=== PATIENT | male | born 1970 | race Caucasian/White ===

== ENCOUNTER 2017-06-03 15:38 | Emergency (ER) | payer MEDICAID ==
--- NOTE | 2017-06-03 16:20 | EDM.PDOC ---
ED HPI GENERAL MEDICAL PROBLEM - General Chief Complaint: Upper Extremity Injury/Pain Stated Complaint: RIGHT ARM PAIN Time Seen by Provider: 06/03/17 16:14 Source of Information: Reports: Patient, RN Notes Reviewed History Limitations: Reports: No Limitations - History of Present Illness INITIAL COMMENTS - FREE TEXT/NARRATIVE: 46-year-old gentleman presents to the emergency department today complaint of right arm pain, he states this pain is been ongoing since recent cardiac angiogram done first part of April 2017. He states the pain will come and go on the inside of his arm will radiate up into the neck no other symptomology has developed no redness or erythema still has full function of the arm, the pain will come and go at this time he is pain-free Right Wrist Pain Score (Numeric/FACES): 2 - Related Data Allergies Allergy/AdvReac Type Severity Reaction Status Date / Time No Known Allergies Allergy Verified 06/03/17 15:53 Home Meds: Home Meds Citalopram Hydrobromide [Celexa] 30 mg PO DAILY 02/03/17 [History] atorvaSTATin [Lipitor] 20 mg PO BEDTIME 02/03/17 [History] Past Medical History Cardiovascular History: Reports: Hypertension Psychiatric History: Reports: Anxiety, Other (See Below) Other Psychiatric History: anxiety and anger issues lifelong - Past Surgical History HEENT Surgical History: Reports: Other (See Below) Other HEENT Surgeries/Procedures: FACIAL RECONSTRUCTION, CLEFT PALATE REPAIR, BILAT EAR REPAIR Other Cardiovascular Surgeries/Procedures: NEGATIVE CARDIAC ANGIOGRAM 05/28/2017 Social & Family History - Tobacco Use Smoking Status *Q: Unknown Ever Smoked - Recreational Drug Use Recreational Drug Use: No Review of Systems - Review of Systems Review Of Systems: See Below Musculoskeletal: Reports: Arm Pain Skin: Denies: Bruising, Pruritis, Erythema, Wound ED EXAM, GENERAL - Physical Exam Exam: See Below Free Text/Narrative:: Examination of the arm no tenderness at the shoulder no tenderness at the elbow no tenderness at the wrist full range of motion of all these joints the angiogram scar is clean dry and intact on appreciate any erythema there is no edema in the arm sensation is intact Exam Limited By: No Limitations General Appearance: Alert, WD/WN, No Apparent Distress Respiratory/Chest: No Respiratory Distress, Lungs Clear, Normal Breath Sounds, No Accessory Muscle Use Cardiovascular: Regular Rate, Rhythm, No Murmur Course - Vital Signs Last Recorded V/S: Last Vital Signs Temp 97.2 F 06/03/17 16:52 Pulse 80 06/03/17 16:52 Resp 14 06/03/17 16:52 BP 152/104 H 06/03/17 16:52 Pulse Ox 98 06/03/17 16:52 - Orders/Labs/Meds Labs: Laboratory Tests 06/03/17 06/03/17 06/03/17 Range/Units 16:27 16:27 16:27 WBC 7.2 (4.5-11.0) K/uL RBC 4.90 (4.30-5.90) M/uL Hgb 14.8 (12.0-15.0) g/dL Hct 44.4 (40.0-54.0) % MCV 91 (80-98) fL MCH 30 (27-31) pg MCHC 33 (32-36) % Plt Count 256 (150-400) K/uL Neut % (Auto) 56 (36-66) % Lymph % (Auto) 31 (24-44) % Brule % (Auto) 6 (2-6) % Eos % (Auto) 6 H (2-4) % Baso % (Auto) 1 (0-1) % Sodium 143 (140-148) mmol/L Potassium 3.9 (3.6-5.2) mmol/L Chloride 105 (100-108) mmol/L Carbon Dioxide 28 (21-32) mmol/L Anion Gap 9.8 (5.0-14.0) mmol/L BUN 11 (7-18) mg/dL Creatinine 1.2 (0.8-1.3) mg/dL Est Cr Clr Drug Dosing 83.53 mL/min Estimated GFR (MDRD) > 60 (>60) Glucose 88 (74-106) mg/dL Calcium 8.4 L (8.5-10.1) mg/dL C-Reactive Protein 0.47 H (0.0-0.3) mg/dL TSH, Ultra Sensitive 1.814 (0.358-3.740) uIU/mL Departure - Departure Time of Disposition: 17:15 Disposition: Home, Self-Care 01 Condition: Good Clinical Impression: Right arm pain - Discharge Information Referrals: Arnel Pettit STRAP MACHINE OPERATOR [Primary Care Provider] - Forms: ED Department Discharge Additional Instructions: Use Tylenol or Motrin as needed for pain control, Please followup with your primary care provider in 3-5 days if not better, please call return to the emergency department with worsening of symptoms. - Assessment/Plan Plan: Assessment Acuity = acute Site and laterality = right arm pain Etiology = unclear etiology Manifestations = none Location of injury = Home Lab values = CBC, CMP, CRP, thyroid all within normal limits Plan Recommend symptomatic care Tylenol Motrin as needed follow-up primary care 3-5 days for evaluation This note was dictated using Stamped voice recognition software please call with any questions on syntax or helen.
[2017-06-03 16:53] VITALS: BP 152/104
== END 2017-06-03 17:29 | disposition home or self-care (01) ==
LOC: JP.ED 15:38
DX: M79.601 Pain in right arm (principal); I10 Essential (primary) hypertension; Z79.899 Other long term (current) drug therapy
CPT/HCPCS: 36415; 80048; 84443; 85025; 86140; 99284

== ENCOUNTER 2019-02-08 08:38 | Day surgery (SDC) | payer MEDICAID ==
[~2019-02-08 08:38] MED LIST: Bupivacaine 0.5% 50 ML MDV ONE; Lidocaine 1% with EPINEPHrine 1:100,000 50 ML MDV ONE
[2019-02-08] MEDS ORDERED: Sodium Chloride 0.9% 1,000 ML IV SCH (10:00)
[2019-02-08] MEDS ORDERED: ceFAZolin 2 GM in Sodium Chloride 0.9% 50 ML IV ONE (10:00)
[2019-02-08] MEDS ORDERED: metroNIDAZOLE/Normal Saline 500 MG in Premix Bag 1 BAG IV ONE (10:00)
[2019-02-08] MEDS ORDERED: Ondansetron 4 MG/2 ML SDV ONE (10:10)
[2019-02-08] MEDS ORDERED: Succinylcholine 200 MG/10 ML MDV ONE (10:10)
[2019-02-08] MEDS ORDERED: Rocuronium 50 MG/5 ML Vial ONE (10:10)
[2019-02-08] MEDS ORDERED: Propofol 200 MG/20 ML SDV ONE (10:10)
[2019-02-08] MEDS ORDERED: Glycopyrrolate 0.2 MG/ML 5 ML MDV ONE (10:10)
[2019-02-08] MEDS ORDERED: Neostigmine Methylsulfate 1 MG/ML 5 ML Syringe ONE (10:10)
[2019-02-08] MEDS ORDERED: Dexamethasone 4 MG/ML SDV ONE (10:10)
[2019-02-08] MEDS ORDERED: fentaNYL 250 MCG/5 ML SDV ONE (10:11)
[2019-02-08] MEDS ORDERED: Scopolamine 1.5 MG Transdermal Patch TOP SCH (10:50)
[2019-02-08] MEDS ORDERED: Lactated Ringers 1,000 ML ONE ×2 (11:21→14:04)
[2019-02-08] MEDS ORDERED: Ketorolac 60 MG/2 ML SDV ONE ×2 (12:09→14:29)
[2019-02-08 15:48] VITALS: BP 109/68; PULSE 85
--- NOTE | 2019-02-11 08:21 | OR ---
DATE OF PROCEDURE: 02/08/2019 SURGEON: Avi Lopez MD PROCEDURE: Left total extraperitoneal hernia repair, incarcerated. COMPLICATIONS: None. PEDIATRIC SPEECH LANGUAGE PATHOLOGIST: None. ANESTHESIA: General/local. RISKS: Risks, benefits, alternatives, and limitations including, but not limited to infection, bleeding, and injury to abdominal structures, testicular injury resulting in testicular loss, injury to vas deferens, and other risks not listed here were explained to the patient, who wished to proceed. PROCEDURE IN DETAIL: The patient was placed in supine position. An infraumbilical incision was made and carried down through the linea alba. The rectus muscles were then dissected from the posterior sheath. A Pean was used to create the space. Balloon was used to enter this and it was subsequently insufflated for 2 minutes under direct visualization. The balloon was removed. The potential space was then inspected. No abnormal bleeding was noted. This was then kept enlarged with carbon dioxide. The dissection commenced in the lateral to medial fashion. At no point was the "triangle of " nor the "triangle of doom" entered. The dissection once complete, the patient noted to have an incarcerated indirect inguinal hernia. This had been reduced by reducing the peritoneum. A standard size mesh was then introduced under the 12 mm port system. This was then unfolded directing over the hernia defect itself. No abnormal bleeding was noted. The air was removed while the mesh was held in place. The port sites were then irrigated. The fascia was closed with #1 Vicryl in a running fashion, subcutaneous tissue was closed with 3-0 Vicryl and 4-0 Vicryl in an interrupted running fashion. Dermabond was applied. The patient tolerated the procedure well. Avi Lopez MD /[id number]
--- NOTE | 2019-02-11 08:24 | OR ---
DATE OF PROCEDURE: 02/08/2019 SURGEON: Avi Lopez MD PROCEDURE: Transversus abdominis plane block bilaterally. COMPLICATIONS: None. TELECOM BILLING ANALYST: None. RISKS: Risks, benefits, alternatives, and limitations including, but not limited to infection, bleeding, and injury to abdominal structures were explained the patient, who wished to proceed. PROCEDURE IN DETAIL: The patient was placed in a supine position. The left area was addressed first. 80% of the solution was injected using 13 megahertz ultrasound probe into the transversus plane. The other side was then performed in the same manner, same fashion, same technique, in the same sequence using the same equipment. The patient tolerated the procedure well. Avi Lopez MD /[id number]
== END 2019-02-08 15:55 | disposition home or self-care (01) ==
LOC: JP.SDS 08:38
PROVIDERS: ATTEND Surgery
DX: K40.30 Unilateral inguinal hernia, with obstruction, without gangrene, not specified as recurrent (principal); I10 Essential (primary) hypertension; E78.5 Hyperlipidemia, unspecified; H90.72 Mixed conductive and sensorineural hearing loss, unilateral, left ear, with unrestricted hearing on the contralateral side; Z87.891 Personal history of nicotine dependence
CPT/HCPCS: 49507; A9270; C1781; J0171; J0330; J0690; J1100; J1885; J2405; J2704; J2710; J2795; J3010; J3490; J7030; J7050; J7120

== ENCOUNTER 2019-06-11 06:03 | Day surgery (SDC) | payer MEDICAID ==
[2019-06-11] MEDS ORDERED: Bupivacaine 0.5% 50 ML MDV ONE (06:37)
[2019-06-11] MEDS ORDERED: Lidocaine 1% with EPINEPHrine 1:100,000 50 ML MDV ONE (06:38)
[2019-06-11] MEDS ORDERED: Sodium Chloride 0.9% 1,000 ML IV SCH (07:00)
[2019-06-11] MEDS ORDERED: Propofol 200 MG/20 ML SDV ONE ×3 (07:25→08:26)
[2019-06-11] MEDS ORDERED: fentaNYL 100 MCG/2 ML SDV ONE ×2 (07:25→08:23)
[2019-06-11] MEDS ORDERED: Midazolam 1 MG/ML 2 ML SDV ONE (07:25)
[2019-06-11] MEDS ORDERED: ceFAZolin 2 GM in Premix Bag 1 BAG IV ONE (07:30)
[2019-06-11] MEDS ORDERED: metroNIDAZOLE/Normal Saline 500 MG in Premix Bag 1 BAG IV SCH (07:30)
[2019-06-11] MEDS ORDERED: Ketorolac 60 MG/2 ML SDV ONE (08:52)
[2019-06-11] MEDS ORDERED: Acetaminophen/HYDROcodone 325-5 MG Tab PO PRN (09:38)
[2019-06-11 12:34] VITALS: BP 107/64; PULSE 68
--- NOTE | 2019-06-11 13:46 | OR ---
DATE OF PROCEDURE: 06/11/2019 SURGEON: Avi Lopez MD PROCEDURE: Open left inguinal hernia repair, recurrent, incarcerated. COMPLICATIONS: None. TRAIN SYSTEM OPERATOR: None. ANESTHESIA: MAC. RISKS: Risks, benefits, alternatives, and limitations including, but not limited to infection, bleeding, recurrence, chronic pain, nerve entrapment, requirement for reoperation, seroma, hematoma, and other risks not listed here were explained to the patient, who wished to proceed. PROCEDURE IN DETAIL: The patient was placed in supine position. A left curvilinear incision was made slightly above the pubic symphysis and to the left. This was approximately 5 cm in size. This was then carried down with electrocautery to the external oblique aponeurosis, which was opened sharply with a 15 blade. The hernia was identified. This was a small defect of approximately 1 cm, indirect, in size. This had incarcerated omentum within the sac. This was from the cord structures, of which a Canadensis drain was used to surround these cord structures, reduced, and then an extra-large plug and patch system was then cut down to size and sutured with multiple 0 Vicryl sutures in interrupted fashion. The overlay patch was adhered in proximity to the pubic symphysis. This was then sutured again about every 8 mm to 1 cm. This was irrigated. The external oblique aponeurosis was closed with 3-0 Vicryl. Deep tissues were closed with 3-0 Vicryl. The skin was closed with 4-0 Vicryl. Dermabond was applied. The patient tolerated the procedure well. Avi Lopez MD /[id number]
--- NOTE | 2019-06-11 13:49 | OR ---
DATE OF PROCEDURE: 06/11/2019 SURGEON: Avi Lopez MD PROCEDURE: Bilateral transversus abdominis plane block. COMPLICATIONS: None. SHIPPING ROOM SUPERVISOR: None. RISKS: Risks, benefits, alternatives, and limitations including, but not limited to infection and bleeding, along with injury to abdominal structures were explained to the patient, who wished to proceed. PROCEDURE IN DETAIL: The patient was placed in supine position. The left side was addressed first. This was injected in the transversus plane under direct visualization and 80% of solution was injected. The other side was then performed in same manner, same fashion, same technique, in the same sequence, and using the same equipment, except for different needle and syringe. The patient tolerated the procedure well. Avi Lopez MD /[id number]
== END 2019-06-11 12:10 | disposition home or self-care (01) ==
LOC: JP.SDS 06:03
PROVIDERS: ATTEND Surgery
DX: K40.31 Unilateral inguinal hernia, with obstruction, without gangrene, recurrent (principal); I10 Essential (primary) hypertension; E78.5 Hyperlipidemia, unspecified; Z87.891 Personal history of nicotine dependence; Z98.890 Other specified postprocedural states
CPT/HCPCS: A9270-GY; C1781; J0171; J0690; J1100; J1885; J2250; J2704; J2795; J3010; J3490; J7030; J7050

== ENCOUNTER 2019-07-15 19:17 | Emergency (ER) | payer MEDICAID ==
[2019-07-15 19:39] VITALS: BP 130/75; PULSE 87
--- NOTE | 2019-07-15 20:47 | EDM.PDOC ---
ED HPI GENERAL MEDICAL PROBLEM - General Chief Complaint: General Stated Complaint: FELL Time Seen by Provider: 07/15/19 20:30 Source of Information: Reports: Patient, Old Records History Limitations: Reports: No Limitations - History of Present Illness INITIAL COMMENTS - FREE TEXT/NARRATIVE: 48 yo male tripped and fell a couple hrs before arrival. Scraped his R palm and injured his L ant chest wall. Hurts to breath. Not SOB. Onset: Today Onset Date: 07/15/19 Onset Time: 18:00 Duration: Hour(s):, Constant Location: Reports: Chest Quality: Reports: Sharp, Stabbing Severity: Moderate Improves with: Reports: Rest Worsens with: Reports: Movement Context: Reports: Trauma Associated Symptoms: Reports: No Other Symptoms Treatments GAMING PIT BOSS: Reports: Other (see below) (none) Right Chest Pain Score (Numeric/FACES): 7 - Related Data Allergies Allergy/AdvReac Type Severity Reaction Status Date / Time environmental Allergy Other Uncoded 07/15/19 19:42 Home Meds: Home Meds Citalopram Hydrobromide [Celexa] 40 mg PO DAILY 02/03/17 [History] Albuterol [Ventolin HFA] 1 - 2 puff IH Q4HR PRN 02/05/19 [History] Hydrocortisone [Hydrocortisone 1% Crm] 1 applic TOP ASDIRECTED 02/05/19 [History ] Rosuvastatin [Crestor] 5 mg PO DAILY 02/05/19 [History] Past Medical History HEENT History: Reports: Impaired Vision Other HEENT History: wears glasses Cardiovascular History: Reports: Hypertension Respiratory History: Reports: Asthma Gastrointestinal History: Reports: None Musculoskeletal History: Reports: Other (See Below) Other Musculoskeletal History: herniated disc low back Neurological History: Reports: Vertigo Psychiatric History: Reports: Anxiety, Depression, Other (See Below) Other Psychiatric History: anxiety and anger issues lifelong Endocrine/Metabolic History: Reports: Obesity/BMI 30+ - Infectious Disease History Infectious Disease History: Reports: Chicken Pox - Past Surgical History HEENT Surgical History: Reports: Other (See Below) Other HEENT Surgeries/Procedures: FACIAL RECONSTRUCTION, CLEFT PALATE REPAIR, BILAT EAR REPAIR Cardiovascular Surgical History: Reports: Other (See Below) Other Cardiovascular Surgeries/Procedures: NEGATIVE CARDIAC ANGIOGRAM 05/28/2017 Respiratory Surgical History: Reports: None GI Surgical History: Reports: Hernia, Inguinal Endocrine Surgical History: Reports: None Musculoskeletal Surgical History: Reports: None Dermatological Surgical History: Reports: None Social & Family History - Family History Cardiac: Reports: DE Neurological: Reports: TIA Oncologic: Reports: Lung - Tobacco Use Years of Tobacco use: 30 - Caffeine Use Caffeine Use: Reports: Coffee, Soda - Recreational Drug Use Recreational Drug Use: No ED ROS GENERAL - Review of Systems Review Of Systems: See Below Constitutional: Reports: No Symptoms HEENT: Reports: No Symptoms Respiratory: Reports: Pleuritic Chest Pain Cardiovascular: Reports: No Symptoms Endocrine: Reports: No Symptoms GI/Abdominal: Reports: No Symptoms : Reports: No Symptoms Musculoskeletal: Reports: No Symptoms Skin: Reports: No Symptoms Neurological: Reports: No Symptoms Psychiatric: Reports: No Symptoms ED EXAM, GENERAL - Physical Exam Exam: See Below Exam Limited By: No Limitations General Appearance: Alert, WD/WN, No Apparent Distress Eye Exam: Bilateral Eye: Normal Inspection Ears: Normal External Exam, Normal Canal, Hearing Grossly Normal, Normal TMs Ear Exam: Bilateral Ear: Auricle Normal, Canal Normal, TM normal Nose: Normal Inspection, No Blood Throat/Mouth: Normal Inspection, Normal Lips, Normal Oropharynx, Normal Voice, No Airway Compromise Head: Atraumatic, Normocephalic Neck: Normal Inspection Respiratory/Chest: No Respiratory Distress, Lungs Clear, Normal Breath Sounds, No Accessory Muscle Use, Other (Rib pain under R breast without crepitus). No: Chest Non-Tender Cardiovascular: Regular Rate, Rhythm, No Edema GI/Abdominal: Normal Bowel Sounds, Soft, Non-Tender, No Distention Back Exam: Normal Inspection. No: CVA Tenderness (R), CVA Tenderness (L) Extremities: Normal Inspection, Normal Range of Motion, Non-Tender, No Pedal Edema. No: Pedal Edema Neurological: Alert, Oriented, CN II-XII Intact, Normal Cognition, No Motor/ Sensory Deficits Psychiatric: Normal Affect, Normal Mood Skin Exam: Warm, Dry, Intact, Normal Color, No Rash Course - Vital Signs Last Recorded V/S: Last Vital Signs Temp 37.1 C 07/15/19 19:41 Pulse 87 07/15/19 19:41 Resp 18 07/15/19 19:41 BP 130/75 07/15/19 19:41 Pulse Ox 96 07/15/19 19:41 - Orders/Labs/Meds Orders: Active Orders 24 hr Category Date Time Status Ribs 2V wo Chest Rt [CR] Stat Exams 07/15/19 20:41 Taken Meds: Medications Discontinued Medications Generic Name Dose Route Start Last Admin Trade Name Telma PRN Reason Stop Dose Admin Acetaminophen 1,000 mg 07/15/19 20:41 07/15/19 21:00 Tylenol Extra Strength PO 07/15/19 20:42 1,000 mg ONETIME ONE Administration Bacitracin 1 dose 07/15/19 20:41 07/15/19 21:00 Bacitracin Oint 1 Gm TOP 07/15/19 20:42 1 dose ONETIME ONE Administration Ketorolac Tromethamine 60 mg 07/15/19 20:40 07/15/19 21:00 Toradol IM 07/15/19 20:41 60 mg ONETIME ONE Administration - Radiology Interpretation Free Text/Narrative:: Rib X-rays-? fx rib #4 on right. Departure - Departure Time of Disposition: 21:30 Disposition: Home, Self-Care 01 Condition: Fair Clinical Impression: Rib fracture Qualifiers: Encounter type: initial encounter Rib fracture type: single rib Fracture type: closed Laterality: right Qualified Code(s): S22.31XA - Fracture of one rib, right side, initial encounter for closed fracture - Discharge Information *PRESCRIPTION DRUG MONITORING PROGRAM REVIEWED*: No *COPY OF PRESCRIPTION DRUG MONITORING REPORT IN PATIENT CHUCKIE: No Instructions: Rib Fracture, [id number] Referrals: Arnel Pettit NP [Primary Care Provider] - Forms: ED Department Discharge Additional Instructions: ibuprofen 600 mg every 6 hrs with food, next dose after 3 am. Acetaminophen OR [place] for added relief. Activity as tolerated. No smoking. F/U with your provider by the end of the week. Sepsis Event Note - Evaluation Sepsis Screening Result: No Definite Risk - Focused Exam Vital Signs: Vital Signs Temp Pulse Resp BP Pulse Ox 07/15/19 19:41 37.1 C 87 18 130/75 96 07/15/19 19:37 37.1 C 87 18 130/75 96 Date Exam was Performed: 07/15/19 Time Exam was Performed: 21:25 - My Orders Last 24 Hours: My Active Orders 07/15/19 20:41 Ribs 2V wo Chest Rt [CR] Stat - Assessment/Plan Last 24 Hours: My Active Orders 05/18/20 20:41 Ribs 2V wo Chest Rt [CR] Stat
[2019-07-15] MEDS: Bacitracin Oint 1 GM U/D Packet TOP ONE (21:00)
[2019-07-15] MEDS: Ketorolac 60 MG/2 ML SDV IM ONE (21:00)
[2019-07-15] MEDS: Acetaminophen 500 MG Tab PO ONE (21:00)
--- NOTE | 2019-07-15 21:41 | CRLCR ---
INDICATION: Anterior right rib pain after fall TECHNIQUE: Two views right ribs. COMPARISON: None FINDINGS: No evidence of pneumothorax or pleural effusion. No acute consolidation. On 1 oblique view there is slight irregularity of the anterolateral aspect of the right 5th rib. IMPRESSION: Nondisplaced right 5th rib fracture at the anterolateral aspect without evidence of pneumothorax. Dictated by Alban Murphy MD @ Jul 15 2019 9:38PM Signed by Dr. Alban Murphy @ Jul 15 2019 9:40PM
== END 2019-07-15 21:41 | disposition home or self-care (01) ==
LOC: JP.ED 19:17
DX: S22.31XA Fracture of one rib, right side, initial encounter for closed fracture (principal); I10 Essential (primary) hypertension; J45.909 Unspecified asthma, uncomplicated; F41.9 Anxiety disorder, unspecified; F32.9 Major depressive disorder, single episode, unspecified; E66.9 Obesity, unspecified; Z68.31 Body mass index [BMI] 31.0-31.9, adult; Z87.891 Personal history of nicotine dependence; Z91.048 Other nonmedicinal substance allergy status; Z79.899 Other long term (current) drug therapy; W01.0XXA Fall on same level from slipping, tripping and stumbling without subsequent striking against object, initial encounter
CPT/HCPCS: 71100; 96372; 99283; A9270; J1885

== ENCOUNTER 2019-12-06 07:19 | Day surgery (SDC) | payer MEDICAID ==
[2019-12-06] MEDS ORDERED: Dextrose 5%-Lactated Ringers 1,000 ML IV SCH ×2 (08:00→10:00)
[2019-12-06] MEDS ORDERED: Propofol 200 MG/20 ML SDV ONE ×3 (08:23→10:47)
[2019-12-06] MEDS ORDERED: Midazolam 1 MG/ML 2 ML SDV ONE (08:23)
[2019-12-06] MEDS ORDERED: fentaNYL 100 MCG/2 ML SDV ONE (08:23)
[2019-12-06 11:56] VITALS: BP 114/76; PULSE 64
--- NOTE | 2019-12-10 14:11 | OR ---
DATE OF PROCEDURE: 12/06/2019 SURGEON: Davon Franklin MD PREOPERATIVE DIAGNOSIS: Indications for screening colonoscopy. POSTOPERATIVE DIAGNOSIS: Screening colonoscopy showing colonic polyps x3. OPERATIVE PROCEDURE: Flexible colonoscopy with: 1. Polypectomy by snare technique x3. 2. Injection of Shelby ink into the submucosa of the sigmoid colon polypectomy site. ANESTHESIA: IV sedation. INDICATION FOR PROCEDURE: This is a 49-year-old presenting for initial screening colonoscopy. The plan is to proceed with a colonoscopy with biopsies and polypectomy as indicated. Potential risks of the procedure including bleeding and perforation were discussed, and the patient wishes to proceed. DETAILS OF PROCEDURE: The patient was taken to the operating room, placed in a left lateral decubitus position. IV sedation was administered, after which the initial digital rectal exam was performed and was unremarkable. Colonoscope was then passed into the rectum with retroflexion revealing uncomplicated hemorrhoidal columns. Scope was eventually passed to the cecum. The prep was fair, there was quite a bit of bowels and bile present, which obscured some areas of mucosal surface, but otherwise any polyp greater than perhaps 4 to 5 mm would have been identified. Three small polyps were identified, 1 within the hepatic flexure, 1 in the splenic flexure, and 1 in the sigmoid colon, each of these were excised by means of snare technique and sent separately for histologic evaluation. The sigmoid colon site was marked with injection of 4 mL of Shelby ink at the submucosa adjacent to the polypectomy site as the area if needed to be reexcised would be somewhat nebulous in terms of its location. Once this was completed, no further problems noted apart from the polyps there were no areas of diverticulosis and no areas of colitis. Procedure was then concluded. The patient was taken to the recovery room in satisfactory condition. Given that the patient having 3 polyps and quite a bit of bile present, the recommendation would be to repeat the colonoscopy in 2 years. Davon Franklin MD /[id number]
== END 2019-12-06 12:01 | disposition home or self-care (01) ==
LOC: JP.SDS 07:19
PROVIDERS: ATTEND Surgery
DX: Z12.11 Encounter for screening for malignant neoplasm of colon (principal); D12.3 Benign neoplasm of transverse colon; D12.5 Benign neoplasm of sigmoid colon; I10 Essential (primary) hypertension
CPT/HCPCS: 45381; 45385; J2250; J2704; J3010; J7121; 88305

== ENCOUNTER 2021-05-26 21:42 | Emergency (ER) | payer MEDICAID ==
[2021-05-26 23:07] LABS: CORONAVIRUS COVID-19 NAA NEGATIVE (NEGATIVE)
[2021-05-27 07:46] VITALS: BP 117/78; PULSE 68
== END 2021-05-27 08:33 ==
LOC: JP.ED 21:42
DX: T76.11XA Adult physical abuse, suspected, initial encounter (principal); F32.A Depression, unspecified; I10 Essential (primary) hypertension; E78.5 Hyperlipidemia, unspecified; F10.10 Alcohol abuse, uncomplicated; G25.81 Restless legs syndrome; E78.00 Pure hypercholesterolemia, unspecified; Q37.9 Unspecified cleft palate with unilateral cleft lip; E66.9 Obesity, unspecified; Z91.09 Other allergy status, other than to drugs and biological substances; Z79.899 Other long term (current) drug therapy; Z72.0 Tobacco use; Z20.822 Contact with and (suspected) exposure to COVID-19; Z68.31 Body mass index [BMI] 31.0-31.9, adult
CPT/HCPCS: 0241U; 36415; 80048; 80076; 80143; 80179; 80305-QW; 80307; 85025; 99284; 99285

== ENCOUNTER 2021-09-26 18:39 | Emergency (ER) | payer MEDICAID ==
[2021-09-26 19:01] VITALS: BP 138/92; PULSE 105
== END 2021-09-26 20:11 | disposition home or self-care (01) ==
LOC: JP.ED 18:39
DX: U07.1 COVID-19 (principal); E78.00 Pure hypercholesterolemia, unspecified; F17.210 Nicotine dependence, cigarettes, uncomplicated; E66.9 Obesity, unspecified; Z68.31 Body mass index [BMI] 31.0-31.9, adult; Z91.048 Other nonmedicinal substance allergy status; Z79.899 Other long term (current) drug therapy
CPT/HCPCS: 99281; 99283; U0002

== ENCOUNTER 2021-12-21 09:43 | Emergency (ER) | payer MEDICAID ==
[2021-12-21 10:07] VITALS: BP 137/90; PULSE 82
== END 2021-12-21 11:13 | disposition home or self-care (01) ==
LOC: JP.ED 09:43
DX: M54.50 Low back pain, unspecified (principal); E78.00 Pure hypercholesterolemia, unspecified; F17.210 Nicotine dependence, cigarettes, uncomplicated; E66.9 Obesity, unspecified; Z68.32 Body mass index [BMI] 32.0-32.9, adult; Z91.048 Other nonmedicinal substance allergy status; Z79.899 Other long term (current) drug therapy; Z86.16 Personal history of COVID-19
CPT/HCPCS: 99283

== ENCOUNTER 2022-03-10 07:54 | Day surgery (SDC) | payer MEDICAID ==
[2022-03-10] MEDS ORDERED: fentaNYL 100 MCG/2 ML SDV ONE (08:17)
[2022-03-10] MEDS ORDERED: Midazolam 1 MG/ML 2 ML SDV ONE (08:17)
[2022-03-10] MEDS ORDERED: Propofol 200 MG/20 ML SDV ONE (08:17)
[2022-03-10] MEDS ORDERED: Dextrose 5%-Lactated Ringers 1,000 ML IV SCH (08:30)
[2022-03-10 11:50] VITALS: BP 126/83; PULSE 75
== END 2022-03-10 11:56 | disposition home or self-care (01) ==
LOC: JP.SDS 07:54
PROVIDERS: ATTEND Surgery
DX: Z12.11 Encounter for screening for malignant neoplasm of colon (principal); I10 Essential (primary) hypertension; E78.5 Hyperlipidemia, unspecified; F41.9 Anxiety disorder, unspecified; F32.A Depression, unspecified; Z85.038 Personal history of other malignant neoplasm of large intestine; Z79.899 Other long term (current) drug therapy; Z98.890 Other specified postprocedural states
CPT/HCPCS: 45378; J2250; J2704; J3010; J7121

== ENCOUNTER 2022-05-28 08:11 | Emergency (ER) | payer MEDICAID ==
[2022-05-28 08:24] VITALS: BP 110/66; PULSE 95
== END 2022-05-28 09:10 | disposition home or self-care (01) ==
LOC: JP.ED 08:11
DX: U07.1 COVID-19 (principal); E78.00 Pure hypercholesterolemia, unspecified; E66.9 Obesity, unspecified; Z68.32 Body mass index [BMI] 32.0-32.9, adult; Z86.16 Personal history of COVID-19; Z91.09 Other allergy status, other than to drugs and biological substances; Z79.899 Other long term (current) drug therapy; Z72.0 Tobacco use
CPT/HCPCS: 99283

== ENCOUNTER 2022-07-31 08:17 | Emergency (ER) | payer MEDICAID ==
[2022-07-31 09:51] VITALS: BP 132/82; PULSE 83
[2022-07-31 10:51] LABS: BASE EXCESS VENOUS -1.2 mm/L; BICARBONATE,VENOUS 23.8 mmol/L; CARBOXYHEMOGLOBIN 13.7 % (0.0-1.6); HEMATOCRIT 41.1 % (38.4-49.7); HEMOGLOBIN 13.8 g/dL (12.9-16.9); MEAN CORPUSCULAR HEMOGLOBIN 31.5 pg (31.6-35.5); MEAN CORPUSCULAR HGB CONC 33.6 g/dL (31.6-35.5); MEAN CORPUSCULAR VOLUME 93.8 fL (81.4-99.0); METHEMOGLOBIN 0.9 %; O2 SATURATION VENOUS 83.8; OXYHEMOGLOBIN 71.6 %; PCO2 VENOUS 43.2 mm/Hg; PH,VENOUS 7.361 (7.350-7.450); PO2 VENOUS 46.8 mm/Hg; RED BLOOD CELL COUNT 4.38 M/uL (4.14-5.76); TOTAL HEMOGLOBIN 14.1 g/dL (13.5-18.0); WHITE BLOOD CELL COUNT,WBC 6.4 K/uL (3.2-11.0)
[2022-07-31 11:06] LABS: ANION GAP 9.2 mmol/L (5.0-14.0); CALCIUM 7.9 mg/dL (8.5-10.1); CREATININE 1.4 mg/dL (0.8-1.3); EST CRCL DRUG DOSING (CG) 65.74 mL/min; POTASSIUM,K 4.2 mmol/L (3.6-5.2)
[2022-07-31 13:53] LABS: BASE EXCESS VENOUS 0.7 mm/L; BICARBONATE,VENOUS 25.9 mmol/L; CARBOXYHEMOGLOBIN 7.4 % (0.0-1.6); OXYHEMOGLOBIN 69.6 %; PCO2 VENOUS 46.1 mm/Hg; PH,VENOUS 7.368 (7.350-7.450); TOTAL HEMOGLOBIN 13.9 g/dL (13.5-18.0)
[2022-07-31 13:55] LABS: PO2 VENOUS 38.5 mm/Hg
== END 2022-07-31 15:09 | disposition home or self-care (01) ==
LOC: JP.ED 08:17
DX: Z77.098 Contact with and (suspected) exposure to other hazardous, chiefly nonmedicinal, chemicals (principal); E66.9 Obesity, unspecified; Z91.09 Other allergy status, other than to drugs and biological substances; Z72.0 Tobacco use; Z86.16 Personal history of COVID-19; Z68.31 Body mass index [BMI] 31.0-31.9, adult
CPT/HCPCS: 36415; 80048; 82803; 85027; 99284